=== PATIENT | male | born 1940 | race Caucasian/White ===

== ENCOUNTER 2019-10-07 19:09 | Inpatient (IN) | payer MEDICARE, OTHER ==
[~2019-10-07] VITALS: Ht 180.3 cm; Wt 93.0 kg
--- NOTE | 2019-10-07 19:20 | NUR ---
78 Y/O MALE TRANSFERRED FROM THE [place] FOR ELEV[facility] TROPONIN. PT REPORTS HE HAS HAD CP X SEVERAL YEARS ON AND OFF HOWEVER DENIES ANY CARDIAC HISTORY. HE REPORTS A NEW ONSET OF SOB WITH EXERTION X THE PAST FEW WEEKS. [facility]IG[facility]ALLY [facility] TO [facility] WITH COMPLAINTS OF LOWER ABD PAIN AND TROP LEVELS WERE FOUND TO BE ELEVATED. DENIES ANY CARDIAC SYMPTOMS AT THIS TIME, JUST C/O ABD PAIN. REPORTS A LOWER GI BLEED A FEW WEEKS AGO UNKNOWN CAUSE OR SOURCE. ALL MONITORING EQUIPMENT APPLIED. FRAME ASSEMBLER SHOWS A SINUS ARRHYTHMIA AT A RATE OF 100, NO ST CHANGES PRESENT ON 5 LEAD. PT DENIES ANY CP, SOB, DIZZINESS, WEAKNESS OR N/V AT THIS TIME. ONLY C/O ABD WHICH IS DESCRIBED "MILD" DUE TO MEDICATION GIV[facility]. ALL VITALS STABLE. PT STATES HE IS COMFORTABLE. PROVIDED WITH WARM BLANKETS. CALL LIGHT WITHIN REACH. KRISTEN CHARLES AT BEDSIDE EVALUATING PT. WILL CONTINUE TO MONITOR.
[2019-10-07] MEDS ORDERED: SODIUM CHLORIDE FLUSH 10ML SYR IVF ONE (19:30)
[2019-10-07 19:56] LABS: BASOPHILS % (AUTO) 0 % (0-1); EOSINOPHILS % (AUTO) 0 % (1-7); LYMPHOCYTES # (AUTO) 0.51 x10^3/uL (1-3.4); LYMPHOCYTES % (AUTO) 4 % (22-44); MD NO; MEAN CORPUSCULAR HGB CONC 33.2 g/dL (33.2-36.2); MEAN CORPUSCULAR VOLUME 96.5 fL (81-97); MEAN PLATELET VOLUME 8.3 fL (7.4-10.4); MONOCYTES # (AUTO) 0.74 x10^3/uL (0.2-0.8); MONOCYTES % (AUTO) 6 % (2-9); NEUTROPHILS # (AUTO) 12.03 x10^3/uL (1.8-6.8); NEUTROPHILS % (AUTO) 91 % (42-75); PLATELET COUNT 374 x10^3/uL (130-400); RED CELL DISTRIBUTION WIDTH 13.7 % (9.4-14.8)
[2019-10-07] MEDS ORDERED: PLEASE ENTER ALLERGIES MC SCH ×2 (20:00→22:00)
[2019-10-07 20:03] LABS: ALANINE AMINOTRANSFERASE 24 U/L (12-78); ALBUMIN 3.2 g/dL (3.4-5.0); ANION GAP 6 mmol/L (5-15); CALCIUM 8.7 mg/dL (8.5-10.1); CHLORIDE 109 mmol/L (98-107); CREATININE 1.53 mg/dL (0.7-1.3)
[2019-10-07 20:08] LABS: ALKALINE PHOSPHATASE 58 U/L (45-117); BILIRUBIN,TOTAL 0.4 mg/dL (0.2-1.0)
--- NOTE | 2019-10-07 20:31 | NUR ---
PT RESTING ON GURNEY. DENIES ANY NEEDS AT THIS TIME. AWAITING CARDIOLOGY CONSULT AND CT TO BE DONE. PT CONTINUES TO DENY CP, SOB, N/V. ALL VITALS STABLE. WILL CONTINUE TO MONITOR.
[2019-10-07] MEDS ORDERED: CLOPIDOGREL 300 MG TABLET PO ONE (21:00)
[2019-10-07] MEDS ORDERED: HEPARIN 5,000 UNITS/ML, 1ML IV ONE (21:00)
[2019-10-07] MEDS ORDERED: ATORVASTATIN 80 MG TABLET PO SCH (21:00)
[2019-10-07] MEDS ORDERED: HEPARIN 5,000 UNITS/ML, 1ML ONE (21:03)
[2019-10-07] MEDS ORDERED: HEPARIN 25,000 UNITS/500ML PMX 500 ML ONE (21:03)
[2019-10-07] MEDS ORDERED: NITROGLYCERIN OINT 2%, 1GM TP ONE (21:30)
[2019-10-07] MEDS ORDERED: ONDANSETRON 2MG/ML, 2ML IVPush PRN (21:30)
[2019-10-07] MEDS: HEPARIN 25,000 UNITS/500ML PMX 500 ML IV PRN (21:44)
--- NOTE | 2019-10-07 21:51 | NUR ---
HEPARIN STARTED, VERIFIED WITH MICHELLE BO. PT ALSO MEDICATED PER EMAR, 5 RIGHTS ADDRESSED. NTG PASTE HELD DUE TO PT NOT C/O CHEST PAIN. ALL VITALS STABLE. NSR ON THE MONITOR, NO ST CHANGES PRESENT. PT CONTINUES TO BE ASYMPTOMATIC.
--- NOTE | 2019-10-07 22:20 | NUR ---
REPORT TO MICHELLE LUI
[2019-10-07 23:13] VITALS: BP 146/88
[2019-10-08 00:41] LABS: BASOPHILS # (AUTO) 0.01 x10^3/uL (0-0.1); BASOPHILS % (AUTO) 0 % (0-1); EOSINOPHILS % (AUTO) 0 % (1-7); LYMPHOCYTES # (AUTO) 1.18 x10^3/uL (1-3.4); LYMPHOCYTES % (AUTO) 13 % (22-44); MD NO; MEAN CORPUSCULAR HEMOGLOBIN 31.7 pg (27.5-34.5); MEAN CORPUSCULAR HGB CONC 32.9 g/dL (33.2-36.2); MEAN CORPUSCULAR VOLUME 96.5 fL (81-97); MEAN PLATELET VOLUME 8.3 fL (7.4-10.4); MONOCYTES # (AUTO) 0.85 x10^3/uL (0.2-0.8); MONOCYTES % (AUTO) 9 % (2-9); NEUTROPHILS # (AUTO) 7.39 x10^3/uL (1.8-6.8); NEUTROPHILS % (AUTO) 78 % (42-75); PLATELET COUNT 406 x10^3/uL (130-400); RED BLOOD COUNT 3.52 x10^6/uL (4.38-5.82); RED CELL DISTRIBUTION WIDTH 13.7 % (9.4-14.8)
[2019-10-08 01:35] VITALS: BP 118/75
[2019-10-08 03:42] LABS: BASOPHILS # (AUTO) 0.09 x10^3/uL (0-0.1); BASOPHILS % (AUTO) 1 % (0-1); EOSINOPHILS # (AUTO) 0.02 x10^3/uL (0-0.4); EOSINOPHILS % (AUTO) 0 % (1-7); LYMPHOCYTES # (AUTO) 1.53 x10^3/uL (1-3.4); LYMPHOCYTES % (AUTO) 17 % (22-44); MD NO; MEAN CORPUSCULAR HEMOGLOBIN 31.7 pg (27.5-34.5); MEAN CORPUSCULAR HGB CONC 32.7 g/dL (33.2-36.2); MEAN CORPUSCULAR VOLUME 96.8 fL (81-97); MEAN PLATELET VOLUME 8.2 fL (7.4-10.4); MONOCYTES # (AUTO) 0.96 x10^3/uL (0.2-0.8); MONOCYTES % (AUTO) 11 % (2-9); NEUTROPHILS # (AUTO) 6.53 x10^3/uL (1.8-6.8); NEUTROPHILS % (AUTO) 72 % (42-75); PLATELET COUNT 374 x10^3/uL (130-400); RED BLOOD COUNT 3.51 x10^6/uL (4.38-5.82); RED CELL DISTRIBUTION WIDTH 13.8 % (9.4-14.8)
[2019-10-08 03:54] LABS: ANION GAP 6 mmol/L (5-15); CALCIUM 8.6 mg/dL (8.5-10.1); CHLORIDE 109 mmol/L (98-107); CHOLESTEROL, TOTAL 193 mg/dL (140-239); CREATININE 1.71 mg/dL (0.7-1.3); TRIGLYCERIDES 80 mg/dL (50-200); VLDL CHOLESTEROL 16 mg/dL (0-25)
[2019-10-08 03:56] LABS: CHOL/HDL RATIO 4.6; HDL CHOL % 22 % (26-37); HDL CHOLESTEROL (DIRECT) 42 mg/dL (40-60); LDL CHOLESTEROL,CALCULATED 135 mg/dL (54-169); LDL/HDL RATIO 3.2 (0.5-3.0)
[2019-10-08 04:14] LABS: HEMOGLOBIN A1C 5.6 % (4.2-6.3)
[2019-10-08 07:20] VITALS: BP 119/72
[2019-10-08] MEDS: HEPARIN 5,000 UNITS/ML, 1ML IV PRN (10:26)
[2019-10-08 12:06] VITALS: BP 105/67
[2019-10-08] MEDS: morphine SULFATE 10 MG/ML, 1ML IVPush PRN ×2 (17:35→18:15)
[2019-10-08 17:45] LABS: MICROSCOPIC AUTO
[2019-10-08 17:46] LABS: CULTURE INDICATED? NO
[2019-10-08] MEDS ORDERED: LORazepam 0.5MG TABLET PO PRN (18:00)
[2019-10-08] MEDS ORDERED: OLANZAPINE 2.5 MG TABLET PO SCH (20:00)
[2019-10-08 20:27] VITALS: BP 125/72
[2019-10-08] MEDS ORDERED: MELATONIN 3 MG TABLET PO PRN (21:30)
[2019-10-08] MEDS: HEPARIN 25,000 UNITS/500ML PMX 500 ML IV PRN (23:34)
[2019-10-09 01:25] VITALS: BP 117/70
[2019-10-09 05:11] LABS: ANION GAP 4 mmol/L (5-15); CALCIUM 8.6 mg/dL (8.5-10.1); CHLORIDE 107 mmol/L (98-107)
[2019-10-09 05:12] LABS: CREATININE 1.73 mg/dL (0.7-1.3)
[2019-10-09 07:38] VITALS: BP 121/79
[2019-10-09] MEDS: ACETAMINOPHEN 325 MG TABLET PO PRN ×2 (08:31→20:53)
[2019-10-09 13:52] VITALS: BP 113/72
[2019-10-09 19:37] VITALS: BP 138/83
[2019-10-09] MEDS ORDERED: OLANZAPINE 2.5 MG TABLET PO SCH (20:00)
[2019-10-09] MEDS: ATORVASTATIN 40 MG TABLET PO SCH (20:53)
[2019-10-09] MEDS: OLANZAPINE 2.5 MG TABLET PO SCH (20:55)
[2019-10-09] MEDS: HEPARIN 25,000 UNITS/500ML PMX 500 ML IV PRN (23:39)
[2019-10-10 01:37] VITALS: BP 122/70
[2019-10-10 05:19] LABS: ANION GAP 4 mmol/L (5-15); CHLORIDE 108 mmol/L (98-107)
[2019-10-10 05:21] LABS: CREATININE 1.24 mg/dL (0.7-1.3)
[2019-10-10 05:30] LABS: BASOPHILS # (AUTO) 0.04 x10^3/uL (0-0.1); BASOPHILS % (AUTO) 1 % (0-1); EOSINOPHILS % (AUTO) 3 % (1-7); LYMPHOCYTES # (AUTO) 1.87 x10^3/uL (1-3.4); LYMPHOCYTES % (AUTO) 31 % (22-44); MD NO; MEAN CORPUSCULAR HEMOGLOBIN 31.5 pg (27.5-34.5); MEAN CORPUSCULAR VOLUME 95.4 fL (81-97); MEAN PLATELET VOLUME 7.9 fL (7.4-10.4); MONOCYTES # (AUTO) 0.67 x10^3/uL (0.2-0.8); MONOCYTES % (AUTO) 11 % (2-9); NEUTROPHILS # (AUTO) 3.35 x10^3/uL (1.8-6.8); NEUTROPHILS % (AUTO) 55 % (42-75); PLATELET COUNT 331 x10^3/uL (130-400); RED BLOOD COUNT 3.74 x10^6/uL (4.38-5.82); RED CELL DISTRIBUTION WIDTH 13.2 % (9.4-14.8)
[2019-10-10] MEDS: HEPARIN 5,000 UNITS/ML, 1ML IV PRN (06:06)
[2019-10-10 06:51] VITALS: BP 125/81
[2019-10-10] MEDS ORDERED: SODIUM CHLORIDE 0.9% 1,000 ML IV SCH (11:00)
[2019-10-10 12:17] VITALS: BP 130/83
[2019-10-10] MEDS ORDERED: MIDAZOLAM 1 MG/ML, 5ML ONE (14:22)
[2019-10-10] MEDS ORDERED: FENTANYL PF 100 MCG/2ML ONE (14:22)
[2019-10-10] MEDS ORDERED: BIVALIRUDIN 250 MG ONE ×2 (14:23→16:14)
[2019-10-10] MEDS ORDERED: LIDOCAINE-MPF 1%, 5ML ONE (14:23)
[2019-10-10] MEDS ORDERED: VERAPAMIL 2.5 MG/ML, 2ML ONE (14:23)
[2019-10-10] MEDS ORDERED: CLOPIDOGREL 300 MG TABLET ONE (15:56)
[2019-10-10] MEDS ORDERED: BIVALIRUDIN 250 MG in SODIUM CHLORIDE 0.9% 50 ML IV SCH (16:28)
[2019-10-10] MEDS: SODIUM CHLORIDE 0.9% 1,000 ML IV SCH (16:50)
[2019-10-10] MEDS: ACETAMINOPHEN 325 MG TABLET PO PRN ×2 (17:17→21:38)
[2019-10-10 19:16] VITALS: BP 140/71
[2019-10-10] MEDS: ATORVASTATIN 40 MG TABLET PO SCH (21:38)
[2019-10-10] MEDS: OLANZAPINE 2.5 MG TABLET PO SCH (21:39)
[2019-10-11] MEDS: SODIUM CHLORIDE 0.9% 1,000 ML IV SCH ×2 (00:28→08:28)
[2019-10-11 01:36] VITALS: BP 138/77
[2019-10-11 05:30] LABS: BASOPHILS # (AUTO) 0.01 x10^3/uL (0-0.1); BASOPHILS % (AUTO) 0 % (0-1); EOSINOPHILS # (AUTO) 0.11 x10^3/uL (0-0.4); EOSINOPHILS % (AUTO) 2 % (1-7); LYMPHOCYTES # (AUTO) 0.89 x10^3/uL (1-3.4); LYMPHOCYTES % (AUTO) 13 % (22-44); MD NO; MEAN CORPUSCULAR HEMOGLOBIN 31.4 pg (27.5-34.5); MEAN CORPUSCULAR HGB CONC 32.4 g/dL (33.2-36.2); MEAN CORPUSCULAR VOLUME 96.7 fL (81-97); MEAN PLATELET VOLUME 8.6 fL (7.4-10.4); MONOCYTES # (AUTO) 0.87 x10^3/uL (0.2-0.8); MONOCYTES % (AUTO) 12 % (2-9); NEUTROPHILS # (AUTO) 5.25 x10^3/uL (1.8-6.8); NEUTROPHILS % (AUTO) 74 % (42-75); PLATELET COUNT 346 x10^3/uL (130-400); RED BLOOD COUNT 3.84 x10^6/uL (4.38-5.82); RED CELL DISTRIBUTION WIDTH 13.8 % (9.4-14.8)
[2019-10-11 05:45] LABS: CHLORIDE 107 mmol/L (98-107)
[2019-10-11 05:54] LABS: ANION GAP 8 mmol/L (5-15); CALCIUM 8.9 mg/dL (8.5-10.1); CREATININE 0.95 mg/dL (0.7-1.3)
[2019-10-11 07:13] VITALS: BP 147/84
[2019-10-11] MEDS: CLOPIDOGREL 75 MG TABLET PO SCH (08:43)
[2019-10-11 11:28] VITALS: BP 134/87
[2019-10-11] MEDS: LISINOPRIL 5 MG TABLET PO SCH (11:29)
[2019-10-11 12:54] VITALS: BP 126/80
[2019-10-11 17:02] VITALS: BP 98/64
[2019-10-11] MEDS: METOPROLOL TARTRATE 25 MG TABLET PO SCH (17:03)
[2019-10-11 19:48] VITALS: BP 117/73
[2019-10-11] MEDS: ATORVASTATIN 40 MG TABLET PO SCH (21:05)
[2019-10-11] MEDS: OLANZAPINE 2.5 MG TABLET PO SCH (21:05)
[2019-10-12 01:25] VITALS: BP 114/68
[2019-10-12] MEDS: METOPROLOL TARTRATE 25 MG TABLET PO SCH (05:40)
[2019-10-12] MEDS ORDERED: ASPIRIN 81 MG TABLET EC PO SCH (06:00)
[2019-10-12 06:44] VITALS: BP 97/62
[2019-10-12 08:28] LABS: BASOPHILS # (AUTO) 0.03 x10^3/uL (0-0.1); BASOPHILS % (AUTO) 0 % (0-1); EOSINOPHILS # (AUTO) 0.06 x10^3/uL (0-0.4); EOSINOPHILS % (AUTO) 1 % (1-7); LYMPHOCYTES # (AUTO) 1.14 x10^3/uL (1-3.4); LYMPHOCYTES % (AUTO) 15 % (22-44); MD NO; MEAN CORPUSCULAR HEMOGLOBIN 31.3 pg (27.5-34.5); MEAN CORPUSCULAR HGB CONC 32.9 g/dL (33.2-36.2); MEAN CORPUSCULAR VOLUME 95.1 fL (81-97); MONOCYTES # (AUTO) 1.09 x10^3/uL (0.2-0.8); MONOCYTES % (AUTO) 15 % (2-9); NEUTROPHILS # (AUTO) 5.21 x10^3/uL (1.8-6.8); NEUTROPHILS % (AUTO) 69 % (42-75); PLATELET COUNT 340 x10^3/uL (130-400); RED BLOOD COUNT 3.68 x10^6/uL (4.38-5.82); RED CELL DISTRIBUTION WIDTH 13.4 % (9.4-14.8)
[2019-10-12] MEDS: CLOPIDOGREL 75 MG TABLET PO SCH (08:29)
[2019-10-12] MEDS: LISINOPRIL 5 MG TABLET PO SCH (08:31)
[2019-10-12 08:38] LABS: ANION GAP 7 mmol/L (5-15); CALCIUM 8.7 mg/dL (8.5-10.1); CHLORIDE 107 mmol/L (98-107)
[2019-10-12 08:40] LABS: CREATININE 1.44 mg/dL (0.7-1.3)
[2019-10-12 13:14] VITALS: BP 95/61
[2019-10-12] MEDS ORDERED: ATOR40TA78 PO (15:21)
[2019-10-12] MEDS ORDERED: ASPI81TA45 PO (15:21)
[2019-10-12] MEDS ORDERED: CLOP75TA PO (15:21)
[2019-10-12] MEDS ORDERED: LISI5TAB7 PO (15:21)
[2019-10-12] MEDS ORDERED: METO25TA91 PO (15:21)
[2019-10-12] MEDS ORDERED: METOPROLOL SUCCINATE 25 MG TAB.ER.24H PO SCH (21:00)
== END 2019-10-12 17:00 | disposition home or self-care (01) | DRG 246 ==
LOC: ED 20:25 → EDIP 20:50 → 5SO 22:32 → DCLOUNGE 10-12 16:35
PROVIDERS: ADMIT Internal Medicine; ATTEND Internal Medicine
PROC: 027036Z Dilation of Coronary Artery, One Artery with Three Drug-eluting Intraluminal Devices, Percutaneous Approach (ICD-10-PCS; principal; 2019-10-10)
PROC: 4A023N7 Measurement of Cardiac Sampling and Pressure, Left Heart, Percutaneous Approach (ICD-10-PCS; 2019-10-10)
PROC: B2111ZZ Fluoroscopy of Multiple Coronary Arteries using Low Osmolar Contrast (ICD-10-PCS; 2019-10-10)
PROC: B2151ZZ Fluoroscopy of Left Heart using Low Osmolar Contrast (ICD-10-PCS; 2019-10-10)
DX: I21.4 Non-ST elevation (NSTEMI) myocardial infarction (principal); I50.43 Acute on chronic combined systolic (congestive) and diastolic (congestive) heart failure; K92.2 Gastrointestinal hemorrhage, unspecified; I13.0 Hypertensive heart and chronic kidney disease with heart failure and stage 1 through stage 4 chronic kidney disease, or unspecified chronic kidney disease; N17.9 Acute kidney failure, unspecified; R45.851 Suicidal ideations; C43.9 Malignant melanoma of skin, unspecified; N20.0 Calculus of kidney; D64.9 Anemia, unspecified; E11.22 Type 2 diabetes mellitus with diabetic chronic kidney disease; E66.9 Obesity, unspecified; E78.5 Hyperlipidemia, unspecified; F32.9 Major depressive disorder, single episode, unspecified; I25.10 Atherosclerotic heart disease of native coronary artery without angina pectoris; I27.20 Pulmonary hypertension, unspecified; K22.0 Achalasia of cardia; I77.819 Aortic ectasia, unspecified site; N18.9 Chronic kidney disease, unspecified; Z82.49 Family history of ischemic heart disease and other diseases of the circulatory system; Z87.442 Personal history of urinary calculi; Z87.891 Personal history of nicotine dependence; Z68.28 Body mass index [BMI] 28.0-28.9, adult; I95.9 Hypotension, unspecified
CPT/HCPCS: 36415; 93458; 99291; C9600; 80048; 80053; 80061; 81001; 83036; 83735; 84100; 84484; 85014; 85018; 85025; 85520; 93005; 93306; 99156; 99157; C1769; C1894; G0378; J0583; J1644; J2250; J2405; J3010; C1725; C1874; C1887; J2270; J7030; Q9967